=== PATIENT | male | born 1950 | race Caucasian/White ===

== ENCOUNTER → 2019-05-27 13:36 | Outpatient (CLI) | payer MEDICARE | END | disposition home or self-care (01) | LOC: D.CT 13:36 | PROVIDERS: ATTEND Family Medicine | DX: I70.213 Atherosclerosis of native arteries of extremities with intermittent claudication, bilateral legs (principal) ==

== ENCOUNTER → 2019-06-20 12:45 | Outpatient (CLI) | payer MEDICARE | END | disposition home or self-care (01) | LOC: D.US 12:45 | PROVIDERS: ATTEND Thoracic Surgery (Cardiothoracic Vascular Surgery) | DX: I65.23 Occlusion and stenosis of bilateral carotid arteries (principal) ==

== ENCOUNTER → 2019-06-23 07:56 | Outpatient (CLI) | payer MEDICARE | END | disposition home or self-care (01) | LOC: D.CT 07:56 | PROVIDERS: ATTEND Thoracic Surgery (Cardiothoracic Vascular Surgery) | DX: I65.23 Occlusion and stenosis of bilateral carotid arteries (principal); I70.8 Atherosclerosis of other arteries; R01.1 Cardiac murmur, unspecified ==

== ENCOUNTER → 2019-06-28 11:06 | Outpatient (CLI) | payer MEDICARE | END | disposition home or self-care (01) | LOC: D.HCCARDIO 11:06 | PROVIDERS: ATTEND Internal Medicine Interventional Cardiology | DX: I25.10 Atherosclerotic heart disease of native coronary artery without angina pectoris (principal) ==

== ENCOUNTER 2019-07-05 05:06 | Inpatient (IN) | payer MEDICARE ==
[2019-07-04 13:19] LABS: BASOPHILS 0.6 % (0-2); EOSINOPHILS 4.1 % (0-7); HEMOGLOBIN 12.6 g/dL (13.5-17.5); IMMATURE GRANULOCYTES 0.2 % (0-5); LYMPHOCYTES 26.7 % (15-50); MCH 33.7 pg (26.0-34.0); MCHC 33.2 g/dL (31.0-37.0); MCV 101.6 fL (80.0-100.0); MEAN PLATELET VOLUME 9.1 fL (7.4-10.4); MONOCYTES 8.2 % (2-11); NEUTROPHILS 60.2 % (40-80); PLATELET COUNT 312 10x3/uL (130-400); RBC 3.74 10x6/uL (4.20-6.10); WBC 10.1 10x3/uL (4.8-10.8)
[2019-07-04 13:20] LABS: BILIRUBIN NEGATIVE (NEGATIVE); GLUCOSE NEGATIVE (NEGATIVE); KETONE NEGATIVE (NEGATIVE); NITRITE NEGATIVE (NEGATIVE); SPECIFIC GRAVITY 1.005 (1.005-1.020); UROBILINOGEN NORMAL (NORMAL)
[2019-07-04 13:28] LABS: APTT 28.7 SECONDS (22.8-39.4); INR 0.94 (0.85-1.17); PROTIME 12.6 SECONDS (11.6-15.0)
[2019-07-04 13:34] LABS: ALBUMIN 4.1 g/dL (3.4-5.0); ALKALINE PHOSPHATASE 68 U/L (30-120); ALT (SGPT) 24 U/L (10-68); BILIRUBIN - TOTAL 0.32 mg/dL (0.2-1.3); CALC OSMOLALITY 267 mosm/kg (275-300); CALCIUM 9.3 mg/dL (8.5-10.1); CARBON DIOXIDE 27.5 mmol/L (21.0-32.0); CHLORIDE - SERUM 100 mmol/L (98-107); CREATININE - SERUM 0.8 mg/dL (0.6-1.3); GLUCOSE 99 mg/dL (74-106); POTASSIUM - SERUM 4.9 mmol/L (3.5-5.1); PROTEIN - SERUM 6.9 g/dL (6.4-8.2); SODIUM 133 mmol/L (136-145); UREA NITROGEN 17 mg/dL (7-18); eGFR NON AFRICAN AMERICAN > 90 mL/min (90-120)
--- NOTE | 2019-07-04 13:46 | NUR ---
8718 [address]POKE [address]STA IN DR REED'S OFFICE. SHE VERIFIED THEY HAVE ALREADY SEEN THE PATIENT'S NUCLEAR STRESS TEST FROM 06/28/[address] REED HAS TALKED TO DR CARRANZA ABOUT THE RESULTS. PT'S BLOOD PRESSURE'S FROM TODAY GIVEN AND MODESTA STATES THAT THE 50 POINT SPREAD IS NOT A NEW DEVELOPMENT. RBP 121/41 LBP 66/39
[~2019-07-05] VITALS: Ht 165.1 cm; Wt 66.1 kg
[2019-07-05] VITALS (33 sets, daily range): BP systolic 94–142; BP diastolic 30–55; BMI 22.8; BMI 22.4
--- NOTE | ~2019-07-05 | TEE ---
PATIENT:ALON ARELLANO MEDICAL RECORD: [id number] LOCATION:[facility] AGE OF PATIENT: 69 ADMISSION DATE: 07/05/19 SEX: M REFERRING PHYSICIAN: INTERPRETING PHYSICIAN: FRACISCO JERRY MD TRANSESOPHAGEAL ECHOCARDIOGRAM Date: 07/05/19 NIDHI CHARGE Y INDICATIONS: - AORTA BIFFEMORAL BYPASS PREMEDICATIONS: PATIENT'S RESPONSE PROCEDURE DOPPLER MEASUREMENTS: LVIT LA PA RA LVOT 1.8 RVOT Asc. Ao AV Gradient Peak 25.3 AV Mean 15.0 AV Area 0.7 MV Gradient Peak MV Mean MV Area INTERPRETATION: LVd: 5.0 cm LVs: 3.8 cm LA: 3.7 cm AV VMAX: 252 Doppler: 2-D: COLOR FLOW DOPPLER NORMAL SALINE STUDY: MISCELLANOUS: DIAGNOSIS: PLAN: Metabolic Specialist:Parrish Mary Public Relations Writer: Alvin MONCADA COMMENTS: DATE OF SERVICE: 07/06/2019 PROCEDURE: Transesophageal echo evaluation of valvular structures during aortic valve replacement surgery. OPERATIVE FINDINGS: 1. Left ventricular chamber size is within normal limits. Left ventricular systolic function is normal at 55% to 60%. TRANSESOPHAGEAL ECHOCARDIOGRAM REPORT [id number] ALON ARELLANO 2. Left atrium, right atrium, and right ventricular chamber sizes are within normal limits. 3. Valvular structures: Aortic valve demonstrates moderate calcific aortic stenosis, valve area calculates to 0.7 cm square and a gradient of 25 mm across the valve. The remaining valvular structures have normal structure and motion. 4. Doppler interrogation reveals no other valvular insufficiency or stenosis. 5. No evidence of pericardial effusion or left ventricular thrombus. TRANSINT:[id number] Voice Confirmation ID: [id number] DOCUMENT ID: [id number] FRACISCO JERRY MD CC: [id number] DICTATION DATE: 07/06/19 1155 ELEMENTARY SCHOOL COUNSELOR: 07/06/19 2142 ADM IN [place] [id number] [place] [address]
[~2019-07-05 05:06] MED LIST: ACCUPRIL40 MG PO; BAYER CHEWABLE81 MG; CYMBALTA30 MG; HYDROCODON-ACE1 EA10; LIPITOR80 MG; NEURONTIN 300300 MG PO; NORVASC10 MG PO; TOPROL XL25 MG; ZOFRAN4 MG PO
[2019-07-05 12:39] LABS: HEMOGLOBIN 10.1 g/dL (13.5-17.5); MCH 33.2 pg (26.0-34.0); MCHC 32.6 g/dL (31.0-37.0); MEAN PLATELET VOLUME 9.1 fL (7.4-10.4); RBC 3.04 10x6/uL (4.20-6.10); RDW 12.9 % (11.5-14.5)
[2019-07-05 12:46] LABS: CALC OSMOLALITY 279 mosm/kg (275-300); CALCIUM 7.4 mg/dL (8.5-10.1); CARBON DIOXIDE 23.5 mmol/L (21.0-32.0); CHLORIDE - SERUM 106 mmol/L (98-107); CREATININE - SERUM 0.8 mg/dL (0.6-1.3); GLUCOSE 104 mg/dL (74-106); POTASSIUM - SERUM 4.5 mmol/L (3.5-5.1); SODIUM 141 mmol/L (136-145); eGFR NON AFRICAN AMERICAN > 90 mL/min (90-120)
[2019-07-05 12:47] LABS: UREA NITROGEN 11 mg/dL (7-18)
[2019-07-05 12:52] LABS: ALKALINE PHOSPHATASE 45 U/L (30-120); ALT (SGPT) 20 U/L (10-68); BILIRUBIN - TOTAL 0.61 mg/dL (0.2-1.3); PROTEIN - SERUM 5.3 g/dL (6.4-8.2)
[2019-07-05 12:53] LABS: ALBUMIN 2.8 g/dL (3.4-5.0)
--- NOTE | 2019-07-05 19:00 | NUR ---
REPORT RECEVIED FROM THE OFF GOING RN. SEE ASSESSMENT IN THE PTS FLOW SHEET. PT VSS. PT NOTED TO HAVE A R IJ CVL. SEE FLUIDS IN THE PTS FLOW SHEET. MID ABD DRESSING AND BILATERAL GROIN DRESSING C/D/I. FC NOTED WITH CLEAR, YELLOW URINE. BILATERAL DP AND PT PULSES DOPPLERABLE. NGT NOTED TO LIS. HYPOACTIVE BS X4. EPIURAL NOTED. DRESSING C/D/I. PT DENIES PAIN AT THIS TIME. SEE EPIDURAL FLOW SHEET. CALL LIGHT IN REACH. WILL CONT POC.
--- NOTE | 2019-07-05 19:30 | MORECARE ---
CASE MANAGEMENT DISCHARGE SUMMARY PATIENT: ALON ARELLANO UNIT: [id number] ADM DATE: 07/05/19 AGE: 69 : 48 SEX: M [facility] AUTHOR: FILIPE RUCKER PHYSICIAN: REFERRING PHYSICIAN: EMILY REED MD DATE OF SERVICE: 07/05/19 Discharge Plan Patient Name: ALON ARELLANO [facility] : 1950 Planned Disposition: Home Anticipated Discharge Date: Discharge Date: Expected LOS: Initial Reviewer: [email or web address] Initial Review Date: 07/05/2019 Generated: 07/05/19 8:30 pm Patient Name: ALON ARELLANO Page [phone] at 1930 All edits/amendments must be made on the electronic document DICTATION DATE: 07/05/191929 COORDINATOR MINING PRODUCTS: BOBBY 07/05/191929 RPT#: [id number] DC DATE: STATUS: ADM IN [facility] [address] [place] [address] END OF REPORT
--- NOTE | 2019-07-05 19:38 | MORECARE ---
CASE MANAGEMENT DISCHARGE SUMMARY PATIENT: ALON SANCHES UNIT: [id number] ADM DATE: 07/05/19 AGE: 69 : 48 SEX: M ROOM/BED: D[facility] AUTHOR: ALKA,DOC PHYSICIAN: REFERRING PHYSICIAN: EMILY REED MD DATE OF SERVICE: 07/05/19 Discharge Plan Patient Name: ALON SANCHES Facility: [facility]:[place] : 1950 Planned Disposition: Home Anticipated Discharge Date: Discharge Date: Expected LOS: Initial Reviewer: [email or web address] Initial Review Date: 07/05/2019 Generated: 07/05/19 8:37 pm Comments DCP- Discharge Planning Updated by [email or web address]: Loretta Pryor on 07/05/19 6:[address] Patient Name: ALON SANCHES Admission Status: Urgent Accout number: [id number] Admission Date: 07-05-2019 : 1950 Admission Diagnosis: Attending: EMILY REED Current LOS: 1 Anticipated DC Date: Planned Disposition: Home Primary Insurance: MEDICARE A & B Discharge Planning Comments: CM met with patient to complete initial dc planning assessment. CM educated patient on the CM role and verbal consent given by patient to complete assessment. CM verified patient's address, phone number, and emergency contact phone numbers. Patient lives at home independently with his grand-daughter. At discharge patient plans to return home CM discussed availability of home health, rehab services, and medical equipment. Patient denies any discharge needs at this time. CM will continue to follow and will assist as needed with dc plans/needs. Applied Marine Physics Professor: Loretta Pryor DCPIA - Discharge Planning Initial Assessment Updated by [email or web address]: Loretta Pryor on 07/05/19 7:31 pm * Is the patient Alert and Oriented? Yes * How many steps to enter\exit or inside your home? 4-5 * PCP [place] * [facility] * Preadmission Environment Home with Family * ADLs Independent * Other Equipment walker, cane * List name and contact numbers for known caregivers / representatives who currently or will assist patient after discharge: Yazan Valiente -[phone] Jim Sanches - [phone] * Verbal permission to speak to the caregivers and representatives has been obtained from the patient. Yes * Community resources currently utilized None * Additional services required to return to the preadmission environment? No * Can the patient safely return to the preadmission environment? Yes * Has this patient been hospitalized within the prior 30 days at any hospital? No Last DP export: 07/05/19 6:30 pm Patient Name: ALON SANCHES Page [phone] at 1938 All edits/amendments must be made on the electronic document DICTATION DATE: 07/05/191936 FORENSIC MATERIALS ENGINEER: BOBBY 07/05/191936 RPT#: [id number] DC DATE: STATUS: ADM IN [facility] [address] [place] [address] END OF REPORT
--- NOTE | 2019-07-05 20:24 | NUR ---
DR DIOR PAGED REGARDING THE EPIDURAL. EPIDURAL WILL BE OUT IN ABOUT 8 HOURS. I CALLED HIM AND HE STATED THAT HE WILL COME BY LATER AND CHANGE OUT THE BAG.
--- NOTE | 2019-07-05 21:28 | NUR ---
DR DIOR IN THE UNIT. EPIDURAL BAG CHANGED.
--- NOTE | 2019-07-05 21:30 | NUR ---
DR DIOR STATED THAT HE CHANGED THE EPIDURAL RATE TO 6ML/H. BOLUS DOSE UNCHANGED.
--- NOTE | 2019-07-05 23:00 | NUR ---
REASSESSMENT COMPLETED. SEE FLOW SHEET. PULSES REMAIN DOPPLERABLE. INCISION SITES C/D/I. VSS. WILL COTN POC.
[2019-07-06] VITALS (24 sets, daily range): BP systolic 100–147; BP diastolic 23–77
--- NOTE | 2019-07-06 00:45 | NUR ---
RAMIRO TITRATED OFF PER BP.
--- NOTE | 2019-07-06 03:57 | NUR ---
FULL CHD BATH GIVEN TO THE PT. PT STATED THAT HE FELT LIKE HE MIGHT NEED TO HAVE A BM. PT ASSISTED OOB AND ONTO THE BCS. PT TRANSFERED WELL AND DENIED DIZZINESS. PT EXPLELLED GAS BUT DID NOT HAVE A BM. PT ASSISTED TO THE BEDSIDE CHAIR. VSS. WILL CONT POC.
[2019-07-06 05:46] LABS: HEMATOCRIT 29.6 % (42.0-54.0); HEMOGLOBIN 9.7 g/dL (13.5-17.5); MCH 33.4 pg (26.0-34.0); MCHC 32.8 g/dL (31.0-37.0); MCV 102.1 fL (80.0-100.0); MEAN PLATELET VOLUME 9.2 fL (7.4-10.4); RBC 2.9 10x6/uL (4.20-6.10); RDW 13.2 % (11.5-14.5); WBC 11.1 10x3/uL (4.8-10.8)
--- NOTE | 2019-07-06 06:17 | NUR ---
PT RESTING WITH HIS EYES CLSOED. NO S/SX OF DISTRESS/DISCOMFORT NOTED. CALL LIGHT IN REACH. WILL CONT POC.
[2019-07-06 06:20] LABS: ALBUMIN 2.6 g/dL (3.4-5.0); ALKALINE PHOSPHATASE 44 U/L (30-120); ALT (SGPT) 21 U/L (10-68); BILIRUBIN - TOTAL 0.42 mg/dL (0.2-1.3); CALC OSMOLALITY 277 mosm/kg (275-300); CALCIUM 7.8 mg/dL (8.5-10.1); CARBON DIOXIDE 23.7 mmol/L (21.0-32.0); CHLORIDE - SERUM 105 mmol/L (98-107); GLUCOSE 116 mg/dL (74-106); MAGNESIUM - SERUM 2.4 mg/dL (1.8-2.4); PHOSPHOROUS 3.7 mg/dL (2.5-4.9); POTASSIUM - SERUM 4.1 mmol/L (3.5-5.1); PROTEIN - SERUM 5.2 g/dL (6.4-8.2); SODIUM 139 mmol/L (136-145); UREA NITROGEN 11 mg/dL (7-18); eGFR NON AFRICAN AMERICAN 78 mL/min (90-120)
--- NOTE | 2019-07-06 10:55 | NUR ---
0700 PT RECIEVED UP IN CHAIR ALERT AND ORIENTED VSS DENIES ALL NEEDS, EPIDURAL SITE INTACT, NGT LIS, MIDLINE ABD AND BILAT GROIN INCISION DRESSINGS CDI, PULSES PALPABLE,DENIES NEED 0900 REPOSITIONED IN CHAIR 1045 CALLED PT TO ASSIST PT BACK TO BED PER DR REED
--- NOTE | 2019-07-06 11:30 | NUR ---
ASSISTED BACK TO BED WITH PT
--- NOTE | 2019-07-06 13:21 | NUR ---
PT HAS A CHRONIC NONHEALING ULCER MEASURING 1CM X 1CM ON HIS RIGHT LATERAL HEEL. THERE IS NO ODOR OR DRAINAGE. RECOMMENDED PAINTING WITH BETADINE AND COVERING FOR PROTECTION. WOUND CARE WILL MONITOR.
--- NOTE | 2019-07-06 13:54 | OP ---
PATIENT NAME: ALON ARELLANO MEDICAL RECORD: [id number] :[birth year] LOCATION:[facility] ADMISSION DATE:07/05/19 SURGEON: KING REED MD DATE OF OPERATION: 07/05/2019 SURGEON: King Reed MD PROCEDURE PERFORMED: Aortobifemoral bypass. 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 ANESTHESIA: General endotracheal anesthesia. ESTIMATED BLOOD LOSS: 100 cc, not enough for Cell Saver retransfusion. COMPLICATIONS: None. SPECIMENS: None. CONDITION: Stable. DISPOSITION: ICU. OPERATIVE FINDINGS: 1. Severe distal common femoral disease bilaterally as expected with a left distal anastomosis onto the proximal profunda; and on the right, on the distal common femoral, extending down onto the profunda femoral. 2. End-to-end aortic anastomosis with oversew of the aorta proximal to the inferior mesenteric and good Doppler signal in the inferior mesenteric artery after amish of flow on the left. INDICATION: Nonhealing right leg ulcer with right iliac and superficial femoral occlusion. PROCEDURE IN DETAIL: The patient was brought to the operating suite, general anesthesia was obtained, the patient was prepped and draped. Vertical incisions over both groins were made. The common femoral, profunda femoral, and superficial femoral on the branch were dissected out. The abdominal incision was made. Peritoneum was opened. Inspection revealed no masses. NG was placed in the appropriate position. The transverse mesocolon was lifted and the small intestine was packed off to the right. The retroperitoneum was incised and the infrarenal abdominal aorta was encircled. 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 Heparin was given after a tunnel was made between the retroperitoneum and both groins, and after the heparin had circulated inflow clamp was placed. The aorta was transected and back flow was good in the aorta, it was oversewn proximal to the inferior mesenteric to maintain flow, end-to-end anastomosis to 14 x 7 bifurcated Hemashield graft was performed. The limbs were then tunneled to both groins; on the left anastomosis, profunda femoral; then on the right to the distal common femoral, extending down the profunda femoral. Flow restored one leg at a time after, the graft was de-aired. Good flow was noted. Protamine was given. Thorough irrigation was undertaken. The abdomen was closed with PDS on the fascia, subcutaneous and skin clips in both groins, two layers of Vicryl and skin clips after antibiotic irrigation, the retroperitoneum on the abdomen was OPERATIVE REPORT [id number] ALON ARELLANO also closed. The patient was stable to the ICU. TRANSINT:[id number] Voice Confirmation ID: [id number] DOCUMENT ID: [id number] KING REED MD at 1354 CC: RITIKA TSAI [id number] DICTATION DATE: 07/05/19 1247 DIRECTOR OF EMPLOYER SERVICES: 07/05/19 1600 ADM IN [place] [address] [place] [address]
--- NOTE | 2019-07-06 15:13 | NUR ---
CVL DRESSING CHANGED
--- NOTE | 2019-07-06 15:58 | NUR ---
CONFIRMED WITH DR KAITLIN ROSAS TO RUN ZINACEF OVER 22 HOURS NOT 30 MINUTES. PHARMACY NOTIFIED
--- NOTE | 2019-07-06 16:53 | NUR ---
SPOKE WITH AGATA IN PHARMACY STIVEN LEY
--- NOTE | 2019-07-06 17:40 | NUR ---
PT REPOSITIONS SELF THROUGHOUT DAY, DENIES ALL NEEDS, VSS, FAMILY CALLED THROUGHOUT DAY AND UPDATES PROVIDED, WILL CONTINUE TO MONITOR
--- NOTE | 2019-07-06 18:20 | NUR ---
CALLED TO PTS ROOM, HE STATED HE WANTED SIDE RAIL LOWERED AND TO DANGLE RLE LOWER THAN HIS BODY WHILE HE LAID DUE TO PAIN, PAIN DESCRIBED REVASCULARIZATION PAIN, ATTEMPTED TO DISCUSS WITH PT WHO STATED HE WANTED TO BE LEFT SITTING AT SIDE OF BED ALONE, EXPLAINED THAT DUE TO EPIDURAL PT IS NOT SAFE TO SIT AT SIDE OF BED, PT STATED HE DIDNT BELIEVE THAT THIS IS A NORMAL PAIN AND HE WANTED TO LEAVE, CALLED DR REED WHO AGREED THAT PT IS HAVING REVASCULARIZATION PAIN AND THAT HE CANNOT BE ALLOWING LEGS TO DANGLE LOWER THAN REST OF BODY. MESSAGE RELAYED TO PT, OFFERED TO LAY RLE ON FOAM EGG CRATE AND REFUSED. PT FINALLY AGREED TO BEING TURNED WITH PILLOW.
--- NOTE | 2019-07-06 19:00 | NUR ---
SHIFT ASSESSMENT COMPLETED. PT CARE ASSUMED. MONITORS ON AND WORKING, VITALS STABLE, PT AWAKE AND ALERT, RIGHT RADIAL ART LINE NOTED, WRIST PROTECTOR ON, GOOD WAVE FORM, DONG CATH STAT LOCKED IN PLACE, NGT TO SUCTION. PT AWAKE AND ALERT, CALL LIGHT WITHIN REACH, WILL CONTINUE TO OBSERVE.
[2019-07-07] VITALS (25 sets, daily range): BP systolic 103–161; BP diastolic 41–67
[2019-07-07 07:11] LABS: ALBUMIN 2.5 g/dL (3.4-5.0); ALKALINE PHOSPHATASE 50 U/L (30-120); BILIRUBIN - TOTAL 0.33 mg/dL (0.2-1.3); CALCIUM 8.2 mg/dL (8.5-10.1); CARBON DIOXIDE 29.2 mmol/L (21.0-32.0); CHLORIDE - SERUM 106 mmol/L (98-107); MAGNESIUM - SERUM 2.3 mg/dL (1.8-2.4); POTASSIUM - SERUM 3.6 mmol/L (3.5-5.1); PROTEIN - SERUM 5.7 g/dL (6.4-8.2); SODIUM 141 mmol/L (136-145)
[2019-07-07 07:38] LABS: HEMATOCRIT 30.9 % (42.0-54.0); MCH 32.9 pg (26.0-34.0); MCHC 32.4 g/dL (31.0-37.0); MCV 101.6 fL (80.0-100.0); MEAN PLATELET VOLUME 9.8 fL (7.4-10.4); RBC 3.04 10x6/uL (4.20-6.10); RDW 13.4 % (11.5-14.5)
[2019-07-07 07:41] LABS: ALT (SGPT) 28 U/L (10-68); CALC OSMOLALITY 282 mosm/kg (275-300); CREATININE - SERUM 0.7 mg/dL (0.6-1.3); GLUCOSE 169 mg/dL (74-106); PHOSPHOROUS 2.4 mg/dL (2.5-4.9); UREA NITROGEN 8 mg/dL (7-18); WBC 15.1 10x3/uL (4.8-10.8); eGFR NON AFRICAN AMERICAN > 90 mL/min (90-120)
--- NOTE | 2019-07-07 08:35 | NUR ---
0700 PT RECIEVED ALERT AN DORIENTED VSS DENIES ALL NEEDS, ANESTHESIA IN ROOM CHANGING EPIDURAL BAG, SEE SHIFT ASSESSMENT, USING IS WITH ENCOURAGEMENT 0800 PT ABLE TO REPOSITION SELF, PULLING 750 ON IS
--- NOTE | 2019-07-07 09:05 | NUR ---
PT CONTINUALLY USING R ARM AND MOVING WRIST AFTER BEING EXPLAINED THAT HE SHOULD USE OTHER ARM DUE TO A LINE, A LINE WAVEFORM NOW FLAT, DR REED NOTIFIED WITH ORDERS TO DC
--- NOTE | 2019-07-07 09:17 | NUR ---
A LINE DCD PER PROTOCOL TIP INTACT
--- NOTE | 2019-07-07 10:33 | NUR ---
PT ASSISTED UP TO CHAIR
--- NOTE | 2019-07-07 17:48 | NUR ---
1400 ASSISTED TO BED BY THERAPY PT ABLE TO REPOSITION SELF IN BED, DENIES ALL NEEDS, PAIN MANAGED WITH EPIDURAL AND EXTERMINATOR HELPER WITHIN REACH, USES IS INDEPENDENTLY, WILL COTNINUE TO MONITOR
--- NOTE | 2019-07-07 19:00 | NUR ---
Report received from off going nurse. Pt is laying in bed watching tv at this time. Initial assessment completed, see flowsheet for details. Pt denies needs at this time. No s/s of distress. Will continue to monitor.
--- NOTE | 2019-07-07 21:00 | NUR ---
Pt is laying in bed watching tv at this time. No needs voiced at this time. No s/s of distress noted. Will continue to monitor.
--- NOTE | 2019-07-07 23:00 | NUR ---
Reassessment completed, see flowsheet for details. Pt is laying in bed watching tv. No needs voiced at this time. No s/s of distress. Will continue to monitor.
[2019-07-08] VITALS (25 sets, daily range): BP systolic 100–148; BP diastolic 43–78; Ht 165.1 cm; Wt 66.1 kg
--- NOTE | 2019-07-08 01:00 | NUR ---
Pt is laying in bed with eyes closed. No needs voiced at this time. No s/s of distress. Will continue to monitor.
--- NOTE | 2019-07-08 03:00 | NUR ---
Reassessment completed, see flowsheet for details. Pt is laying in bed with eyes closed at this time. No needs voiced. No s/s of distress. Will continue to monitor.
--- NOTE | 2019-07-08 05:00 | NUR ---
Pt is laying in bed with eyes closed at this time. No needs voiced at this time. No s/s of distress noted. Will continue to monitor.
[2019-07-08 05:42] LABS: HEMATOCRIT 26.6 % (42.0-54.0); HEMOGLOBIN 8.5 g/dL (13.5-17.5); MCH 33.2 pg (26.0-34.0); MEAN PLATELET VOLUME 9.3 fL (7.4-10.4); RBC 2.56 10x6/uL (4.20-6.10); RDW 13.5 % (11.5-14.5); WBC 11.6 10x3/uL (4.8-10.8)
[2019-07-08 05:44] LABS: MCV 103.9 fL (80.0-100.0)
[2019-07-08 06:08] LABS: ALKALINE PHOSPHATASE 41 U/L (30-120); ALT (SGPT) 25 U/L (10-68); BILIRUBIN - TOTAL 0.32 mg/dL (0.2-1.3); CALCIUM 7.7 mg/dL (8.5-10.1); CARBON DIOXIDE 29.2 mmol/L (21.0-32.0); CHLORIDE - SERUM 109 mmol/L (98-107); CREATININE - SERUM 0.7 mg/dL (0.6-1.3); MAGNESIUM - SERUM 2.2 mg/dL (1.8-2.4); POTASSIUM - SERUM 3.8 mmol/L (3.5-5.1); PROTEIN - SERUM 4.8 g/dL (6.4-8.2); SODIUM 144 mmol/L (136-145); UREA NITROGEN 7 mg/dL (7-18); eGFR NON AFRICAN AMERICAN > 90 mL/min (90-120)
[2019-07-08 06:27] LABS: CALC OSMOLALITY 285 mosm/kg (275-300); GLUCOSE 118 mg/dL (74-106); PHOSPHOROUS 1.6 mg/dL (2.5-4.9)
--- NOTE | 2019-07-08 07:55 | NUR ---
MOUTH CARE AND REPOSITIONED. HIGHFLOW NC 7L PLACED BY RT. NGT PATIENT AND AUSCULTATED FOR POSITIONING. NGT IS IN PLACE.
--- NOTE | 2019-07-08 10:29 | NUR ---
PT OOB TO CHAIR PER PT. DR HAIR HERE AND DR REED HERE AND DR HOANG WELL ON ROUNDS. MS PULLING 1500 ON I.S. GOOD EFFORT. ENCOURAGED TO COUGH AND DEEP BREATH. PERCUSSION TO LLL ORDERED BY DR HAIR. DISCUSSED WITH RT.
--- NOTE | 2019-07-08 13:28 | NUR ---
ASSISTED BACK TO BED WITH PT. PT RICKIE WELL.
--- NOTE | 2019-07-08 19:20 | NUR ---
REPORT REC'D AND CARE ASSUMED, REC'D PT AWAKE, ALERT, ORIENTED X 4, O2 @ 3.5 LITERS VIA HF NC, RIGHT NARE NGT TAPED SYMONE, PLACEMENT VERIFIED VIA SM AIR BOLUS AUSCULTATED OVER EPIGASTRIM, BS HYPOACTIVE, MIDLINE ABD DRSG CDI, RIJ CVL DRSG CDI WITH D51/2NS WITH 20KCL @ 75CC/HR, BILAT GROIN DRSGS CDI, EPIDURAL TAPED SECURELY TO BACK INFUSING @ 8CC/HR WITH 4CC Q15MIN BOLUS, PT RATING PAIN "A LITTLE AT THIS TIME", DONG PATENT DRAINING CONCENTRATED URINE, PPP, SR UP X 2, CALL LIGHT IN REACH, BED IN LOW POSIITION.
--- NOTE | 2019-07-08 21:15 | NUR ---
EVENING MEDS GIVEN ORDERED, PT RESTING IN BED EYES CLOSED, RESP EVEN AND UNLABORED, VSS, WILL MONITOR FOR CHANGES.
--- NOTE | 2019-07-08 22:35 | NUR ---
PT REPOSITIONED UP IN BED FOR COMFORT, COMPLAINS OF NAUSEA, GREEN BILE NOTED FROM NGT, 4MG ZOFRAN GIVEN SLOW IVP, PT'S HOB ELEVATED ON REQUEST, PT DENIES FURTHER NEEDS.
--- NOTE | 2019-07-08 23:00 | NUR ---
REASSESSEMENT COMPLETED, VSS, WILL CONTINUE TO MONITOR FOR CHANGES, PT DENIES NEEDS, SR UP X 2, CALL LIGHT IN REACH.
[2019-07-09] VITALS (23 sets, daily range): BP systolic 114–158; BP diastolic 43–91
--- NOTE | 2019-07-09 | NUR ---
PT COMPLAINS OF RIGHT HEEL BURNING, REQUESTING DRSG CHANGED, DRSG REMOVED, DIME SIZED WOUND WITH BLOODY EXUDATE NOTED, MEPILEX DRSG CHANGED, PT ASSISTED TO REPOSITION FOR COMFORT, EPIDURAL BEEPING LOW VOLUME 33ML LEFT, WILL NOTIFY ANESTHESIA.
--- NOTE | 2019-07-09 00:35 | NUR ---
AL KOBY AT BS REPLACING EPIDURAL BAG, PT DENIES NEEDS, VSS.
--- NOTE | 2019-07-09 02:00 | NUR ---
NO CHANGES IN STATUS AT THIS TIME.
--- NOTE | 2019-07-09 03:30 | NUR ---
REASSESSMENT COMPLETED, NO CHANGES FROM PREVIOUS ASSESSMENT, VSS, WILL CONT TO MONITOR
--- NOTE | 2019-07-09 05:30 | NUR ---
AM LAB DRAWN FROM CVL AND SENT TO LABS
[2019-07-09 05:42] LABS: HEMATOCRIT 25.2 % (42.0-54.0); MCH 33.2 pg (26.0-34.0); MCHC 31.7 g/dL (31.0-37.0); MCV 104.6 fL (80.0-100.0); MEAN PLATELET VOLUME 9.7 fL (7.4-10.4); RBC 2.41 10x6/uL (4.20-6.10); RDW 13.3 % (11.5-14.5); WBC 10.1 10x3/uL (4.8-10.8)
[2019-07-09 05:55] LABS: ALBUMIN 1.9 g/dL (3.4-5.0); ALKALINE PHOSPHATASE 43 U/L (30-120); ALT (SGPT) 22 U/L (10-68); BILIRUBIN - TOTAL 0.28 mg/dL (0.2-1.3); CALCIUM 7.4 mg/dL (8.5-10.1); CARBON DIOXIDE 28.3 mmol/L (21.0-32.0); CHLORIDE - SERUM 108 mmol/L (98-107); CREATININE - SERUM 0.7 mg/dL (0.6-1.3); PROTEIN - SERUM 4.7 g/dL (6.4-8.2); SODIUM 139 mmol/L (136-145); UREA NITROGEN 6 mg/dL (7-18); eGFR NON AFRICAN AMERICAN > 90 mL/min (90-120)
[2019-07-09 05:56] LABS: CALC OSMOLALITY 289 mosm/kg (275-300); GLUCOSE 345 mg/dL (74-106); PHOSPHOROUS 2.2 mg/dL (2.5-4.9); POTASSIUM - SERUM 5.3 mmol/L (3.5-5.1)
--- NOTE | 2019-07-09 09:25 | NUR ---
NGT TO LIW, OUTPUT INCREASED OVERNIGHT, HYPOACTIVE BS NOTED.
[2019-07-09 11:55] LABS: % SATURATION 17 % (15-55); IRON 24 ug/dl (35-150); TOTAL IRON BIND CAPACITY 134 ug/dl (260-445); UNSAT IRON BIND CAPACITY 110 ug/dl (150-375)
--- NOTE | 2019-07-09 12:18 | NUR ---
PT SITTING UP IN CHAIR. DR HAIR HERE ON ROUNDS.
--- NOTE | 2019-07-09 18:17 | NUR ---
BATH AND LINENS CHANGED.
--- NOTE | 2019-07-09 19:00 | NUR ---
ASSESSMENT COMPLETED. PT SITTING UP ON SIDE OF BED. EPIDURAL IN BUT NO MEDICINE. DRESSING CDI. O2 AT 3.5 L VIA NC. RIGHT IJ PATENT WITH IVF AND CIGARETTE CATCHER MORHPINE. C/O PAIN. INDEPENDENT WITH MOVING IN BED
--- NOTE | 2019-07-09 21:00 | NUR ---
PRN TORODOL GIVEN. CONT C/O PAIN BUT SAYS MORHPINE AND TORODOL HELP.
--- NOTE | 2019-07-09 23:00 | NUR ---
RE-ASSESSMENT COMPLETED. NO CHANGES SINCE LAST ASSESSMENT
--- NOTE | 2019-07-09 23:30 | NUR ---
DR. DIOR HERE. TOOK OUT EPIDURAL.
[2019-07-10] VITALS (23 sets, daily range): BP systolic 124–178; BP diastolic 46–84
--- NOTE | 2019-07-10 01:00 | NUR ---
NO SIGN OF BLEEDING OR SWELLING TO BACK POST EPIDURAL. GIVEN ANOTHER DOSE OF PRN TORODOL PER ORDERS. PATIENT STATES IT HELPS.
--- NOTE | 2019-07-10 03:00 | NUR ---
RE-ASSESSMENT COMPLETED. NO CHANGES SINCE LAST ASSESSMENT. STILL ABLE TO PALP CHRISSY PEDAL PULSES WITHOUT DIFFICULTY
--- NOTE | 2019-07-10 05:00 | NUR ---
ALERT/ORIENTED X4. DENIES ANY NEEDS. INDEPENDENT WITH REPOSITIONING
[2019-07-10 05:17] LABS: HEMATOCRIT 26.5 % (42.0-54.0); HEMOGLOBIN 8.6 g/dL (13.5-17.5); MCH 33.5 pg (26.0-34.0); MCHC 32.5 g/dL (31.0-37.0); MCV 103.1 fL (80.0-100.0); MEAN PLATELET VOLUME 9.9 fL (7.4-10.4); RBC 2.57 10x6/uL (4.20-6.10)
[2019-07-10 05:48] LABS: ALBUMIN 2.1 g/dL (3.4-5.0); ALKALINE PHOSPHATASE 44 U/L (30-120); ALT (SGPT) 26 U/L (10-68); BILIRUBIN - TOTAL 0.37 mg/dL (0.2-1.3); CALC OSMOLALITY 278 mosm/kg (275-300); CALCIUM 8.1 mg/dL (8.5-10.1); CARBON DIOXIDE 30.1 mmol/L (21.0-32.0); CHLORIDE - SERUM 105 mmol/L (98-107); CREATININE - SERUM 0.7 mg/dL (0.6-1.3); GLUCOSE 95 mg/dL (74-106); MAGNESIUM - SERUM 1.9 mg/dL (1.8-2.4); PHOSPHOROUS 3.2 mg/dL (2.5-4.9); POTASSIUM - SERUM 4.1 mmol/L (3.5-5.1); PROTEIN - SERUM 5.2 g/dL (6.4-8.2); SODIUM 141 mmol/L (136-145); UREA NITROGEN 8 mg/dL (7-18); eGFR NON AFRICAN AMERICAN > 90 mL/min (90-120)
--- NOTE | 2019-07-10 09:08 | NUR ---
PT OOB TO CHAIR. C/O INCISIONAL PAIN. IS ASKING FOR TORADOL PRN AND IS USING ORTHOTIC/PROSTHETIC PRACTITIONER MS.
--- NOTE | 2019-07-10 14:55 | NUR ---
1100- PT AMB 2 X AROUND ICU DEPT WITH PT. BACK TO CHAIR. CALL LIGHT IN REACH.
--- NOTE | 2019-07-10 19:15 | NUR ---
RECIVED BEDSIDE SHIFT REPORT AT BEDSIDE. PT IS AWAKE AND A&OX4 WATCHING TV. VOICES NO C/O AT THIS TIME OR PAIN. VSS. PERFOMRED FULL ASSESSMENT AND WILL DOC IN FLOWSHEET. NOTIED PT TO BE TAKING SIPS OF WATER PER ORDER. BED IS LOW,SIDE RAILSX2,CALL [facility] WTIN REACH. WILL CONTINUE TO MONITOR
--- NOTE | 2019-07-10 21:48 | NUR ---
PT IS RESTING IN BED. SWITCHED OUT MORPHINE SYRINGE AND SCANNED ON MAY. PT VOICES PAIN "7/10" NUMERIC SCALE. HE PUSHED HIS METER ENGINEER BUTTON AT THIS TIME. EMPTIED URINAL OF 280ML OF LIGHT YELLOW URINE AT THIS TIME. BED IS LOW,SIDE RIASLX2,CALL [facility] WITHIN REACH. WILL CONTINUE TO MONITOR
--- NOTE | 2019-07-10 22:20 | NUR ---
PT USED CALL LIGHT FROM ROOM. HE ASKED IF HE COULD HAVE "CAN I HAVE MY NEW PAIN MEDICINE?'. I ASK HIM IF HE MEANS HIS TORADOL, HE VOICES "YEA". WILL GET AND DOC ON MAY. NO OTHER NEEDS VOIED. HE STATES PAIN IS (7/10) ON NUMERIC SCALE. VSS. BED IS LOW,SIDE RAISLX2,CALL LIGHT WITHIN REACH.WILL CONTINUE TO MONITOR
--- NOTE | 2019-07-10 23:01 | NUR ---
JUST ADMINSITERED SCHEDULED MEDS. PT ASKED IF HE COULD SIT UP IN THE CHAIR FOR AWHILE. I VOICED YES. PT GOT HIMSELF TO THE SIDE OF BED AND STOOD UP WITH NO ASSISTANCE. I JUST STAYED BESIDE HIM TO MONITOR. HE SAFELY WALKED TO THE CHAIR AND SAT DOWN BY HIMSELF. I HELPED ADJUST ALL CORDS, AND LINES TO COMFORT. CHAIR LEGS ARE LOCKED, CALL LIGHT IS WITHIN REACH ALONG WITH FOUNTAIN PEN TURNER BUTTON. HE VOICED "ILL CALL YA WHEN IM READY TO GO BACK TO BED". NO OTHER NEEDS VOICED. VSS. WILL CONITNUE TOMONITOR
[2019-07-11] VITALS (11 sets, daily range): BP systolic 95–155; BP diastolic 49–86
--- NOTE | 2019-07-11 | NUR ---
PT USED CALL LIGHT AND VOICED "I WOULD LIKE TO GET BACK TO BED". PT SAFELY GOT HIMSELF BACK TO BED WHILE I MONITORED BESIDE HIM. I SITUATED ALL HIS LINES AND CARDS TO COMFORT. ELEVATED RIGHT LEG PER REQUEST. VSS. BED IS LOW,SIDE RAILSX2,CALL LIGHT WITHIN REACH. WILL CONTINUE TO MONITOR
--- NOTE | 2019-07-11 02:40 | NUR ---
PT USED CALL LIGHT AND ASKED IF HE COULD HAVE HIS "EXTRA PAIN MEDICINE". I ASKED IF HE MEANS THE TORADOL?. HE VOICED "YEA". VOICES PAIN "7/10" NUMERIC SCALE. ADMINISTERED AND CHARTED ON MAY TORADOL 15MG IV. EMPTIED 300ML OF LIGHT YELLOW URINE FROM URINAL AND PERFORMED RE-ASSESSMENT AT THIS TIME AND WILL DOC ON FLOW SHEET. VSS. PT REPOSITIONED FOR COMFORT AT THIS TIME. RIGHT LEG IS ELEVATED TO DECREASE SWELLING. BED IS LOW,SIDE RIALSX2,CALL LIGHT WITHIN REACH. WILL CONTINUE TO MONITOR
[2019-07-11 03:53] LABS: BASOPHILS 0.5 % (0-2); EOSINOPHILS 7.2 % (0-7); HEMOGLOBIN 8.4 g/dL (13.5-17.5); IMMATURE GRANULOCYTES 0.1 % (0-5); LYMPHOCYTES 15.9 % (15-50); MCH 32.9 pg (26.0-34.0); MCHC 32.3 g/dL (31.0-37.0); MEAN PLATELET VOLUME 9.5 fL (7.4-10.4); NEUTROPHILS 66.3 % (40-80); PLATELET COUNT 327 10x3/uL (130-400); RBC 2.55 10x6/uL (4.20-6.10); RDW 12.7 % (11.5-14.5); WBC 8.2 10x3/uL (4.8-10.8)
[2019-07-11 04:04] LABS: CALC OSMOLALITY 275 mosm/kg (275-300); CARBON DIOXIDE 29.2 mmol/L (21.0-32.0); CHLORIDE - SERUM 104 mmol/L (98-107); CREATININE - SERUM 0.6 mg/dL (0.6-1.3); GLUCOSE 97 mg/dL (74-106); POTASSIUM - SERUM 4.1 mmol/L (3.5-5.1); SODIUM 139 mmol/L (136-145); UREA NITROGEN 7 mg/dL (7-18); eGFR NON AFRICAN AMERICAN > 90 mL/min (90-120)
--- NOTE | 2019-07-11 04:27 | NUR ---
PT IS RESTING IN BED ON LEFT SIDE WITH EYES CLOSED. VSS. BED IS LOW,SIDE RAILSX2,CALL [facility] WITHIN REACH. WILL CONTINUE TO MONITOR
--- NOTE | 2019-07-11 06:00 | NUR ---
PT IS RESTING WITH EYES CLOSED. VSS. ADMINISTERING SCHEDULED MEDS AT THIS TIME. I ALSO NOTICED THAT HIS RIGHT IJ DRESSING HAD BEGIN TO DETACH. I CHANGED CENTRAL LINE DRESSING AT THIS TIME WHILE KEEPING STERIL TECHNIQUE. PT TOLERATED WELL WITH NO C/O. NO NEEDS OR WANTS VOICED BY THE PT OTHER THAN "IS IT TIME FOR MY OTHER PAIN MEDICINE YET?". I VOICED AT ABOUT 0630 HE CAN HAVE IT AGAIN. HE VOICED"OK". HE DID PUSH HIS MORPHINE BALANCE WHEEL SCREW HOLE DRILLER BUTTON AT THIS TIME. VSS. BED IS LOW,SIDE RIALSX2,CALL [facility] WITHIN REACH. WILL CONTINUE TO MONITRO
--- NOTE | 2019-07-11 07:10 | NUR ---
REPORT RECIEVED, SHIFT ASSESSMENT COMPLETE, PT IS ALERT AND ORIENTED, ON 2L NC WITH 97% O2 SAT. ALL PPP, VSS, CALL LIGHT IN REACH
--- NOTE | 2019-07-11 08:41 | NUR ---
Nutrition follow-up: POD 6 Diet: clear liquids and advance as tolerated Wt: 146# labs reviewed RDN following.
--- NOTE | 2019-07-11 10:23 | NUR ---
ARRIVE TO ROOM VIA WHEELCHAIR FROM ICU. AMBULATES TO CHAIR. GAIT STEADY. ALERT AND ORIENTED X4. RT IJ SL. SWAB CAPS ON. MIDLINE ABDOMINAL INCISION KAJAL CLEAN, DRY, INTACT. DENIES ANY NEEDS AT THIS TIME. CONTINUE PLAN OF CARE AND SAFETY PRECAUTIONS.
--- NOTE | 2019-07-11 19:15 | NUR ---
RECEIVED REPORT, WILL ASSUME CARE OF PT, PHARMACY BROUGHT IRON, WILL GIVE NON-SCHDULED, IT WAS DUE AROUND 1700, PT SITTING IN CHAIR, DENIES ANY NEEDS, CALL LIGHT IN REACH, WILL CONTINUE PLAN OF CARE
[2019-07-12] VITALS: BP 165/70
--- NOTE | 2019-07-12 03:47 | NUR ---
I have reviewed this patient and I concur with the Shift Assessment completed by the Licensed Practical Nurse today this shift.
[2019-07-12 04:00] VITALS: BP 141/66
[2019-07-12 05:48] LABS: BASOPHILS 0.5 % (0-2); EOSINOPHILS 5.6 % (0-7); HEMATOCRIT 27.1 % (42.0-54.0); HEMOGLOBIN 8.7 g/dL (13.5-17.5); IMMATURE GRANULOCYTES 0.2 % (0-5); MCH 32.7 pg (26.0-34.0); MCHC 32.1 g/dL (31.0-37.0); MCV 101.9 fL (80.0-100.0); MONOCYTES 12.4 % (2-11); NEUTROPHILS 68.3 % (40-80); PLATELET COUNT 365 10x3/uL (130-400); RBC 2.66 10x6/uL (4.20-6.10); RDW 12.6 % (11.5-14.5); WBC 9.2 10x3/uL (4.8-10.8)
[2019-07-12 06:09] LABS: CALC OSMOLALITY 277 mosm/kg (275-300); CALCIUM 8.2 mg/dL (8.5-10.1); CARBON DIOXIDE 30.2 mmol/L (21.0-32.0); CHLORIDE - SERUM 105 mmol/L (98-107); CREATININE - SERUM 0.7 mg/dL (0.6-1.3); GLUCOSE 87 mg/dL (74-106); MAGNESIUM - SERUM 1.9 mg/dL (1.8-2.4); POTASSIUM - SERUM 3.8 mmol/L (3.5-5.1); SODIUM 141 mmol/L (136-145); UREA NITROGEN 6 mg/dL (7-18); eGFR NON AFRICAN AMERICAN > 90 mL/min (90-120)
[2019-07-12 08:00] VITALS: BP 156/58
--- NOTE | 2019-07-12 08:00 | NUR ---
IJ CVL DCD ORDERED.
--- NOTE | 2019-07-12 09:59 | NUR ---
DRSG CHANGED TO RIGHT GROIN ORDERED. PIV STARTED TO RIGHT FA WITH 22 GAUGE CATH AND FLUSHED WITH NS. LINE IS PATENT.
--- NOTE | 2019-07-12 10:19 | NUR ---
STOOL SPECIMEN COLLECTED AND TAKEN TO LAB. WILL MONITOR.
--- NOTE | 2019-07-12 12:17 | NUR ---
Nutrition follow-up: POD 7 Diet just advanced to clear liquids 07/10 Labs reviewed Wt: 145# Recommend advancing diet to low sodium as tolerated today RDN following.
--- NOTE | 2019-07-12 13:21 | NUR ---
RIGHT HEEL REWRAPED AFTER US.
[2019-07-12 13:25] VITALS: BP 159/59
--- NOTE | 2019-07-12 14:33 | MORECARE ---
CASE MANAGEMENT DISCHARGE SUMMARY PATIENT: ALON ARELLANO UNIT: [id number] ADM DATE: 07/05/19 AGE: 69 : 48 SEX: M ROOM/BED: D.2117 AUTHOR: ALKA,DOC PHYSICIAN: REFERRING PHYSICIAN: EMILY REED MD DATE OF SERVICE: 07/12/19 Discharge Plan Patient Name: ALON ARELLANO Facility: [facility]:[place] : 1950 Planned Disposition: Home Anticipated Discharge Date: Discharge Date: Expected LOS: Initial Reviewer: [email or web address] Initial Review Date: 07/05/2019 Generated: 07/12/19 3:32 pm Comments DCP- Discharge Planning Updated by [email or web address]: Maria Isabel Pires on 07/12/19 1:[address] CM contacted Kathya with Rehab services for evaluation. DCP- Discharge Planning Updated by [email or web address]: Loretta Pryor on 07/05/19 6:[address] Patient Name: ALON ARELLANO Admission Status: Urgent Accout number: [id number] Admission Date: 07-05-2019 : 1950 Admission Diagnosis: Attending: EMILY REED Current LOS: 1 Anticipated DC Date: Planned Disposition: Home Primary Insurance: MEDICARE A & B Discharge Planning Comments: CM met with patient to complete initial dc planning assessment. CM educated patient on the CM role and verbal consent given by patient to complete assessment. CM verified patient's address, phone number, and emergency contact phone numbers. Patient lives at home independently with his grand-daughter. At discharge patient plans to return home CM discussed availability of home health, rehab services, and medical equipment. Patient denies any discharge needs at this time. CM will continue to follow and will assist as needed with dc plans/needs. Chain Testing Machine Operator: Loretta Pryor DCPIA - Discharge Planning Initial Assessment Updated by [email or web address]: Loretta Pryor on 07/05/19 7:31 pm * Is the patient Alert and Oriented? Yes * How many steps to enter\exit or inside your home? 4-5 * PCP [facility] * [facility] * Preadmission Environment Home with Family * ADLs Independent * Other Equipment walker, cane * List name and contact numbers for known caregivers / representatives who currently or will assist patient after discharge: Yazan Valiente -[phone] Jim Mckennaer- [phone] * Verbal permission to speak to the caregivers and representatives has been obtained from the patient. Yes * Community resources currently utilized None * Additional services required to return to the preadmission environment? No * Can the patient safely return to the preadmission environment? Yes * Has this patient been hospitalized within the prior 30 days at any hospital? No Last DP export: 07/05/19 6:38 pm Patient Name: ALON AERLLANO Page [id number] at 1433 All edits/amendments must be made on the electronic document DICTATION DATE: 07/12/191431 INK JET OPERATOR: BOBBY 07/12/191431 RPT#: [id number] DC DATE: STATUS: ADM IN [facility] [address] [place] [address] END OF REPORT
--- NOTE | 2019-07-12 14:44 | NUR ---
REHAB PRESCREENING Rehab referral received and chart reviewed. Physical Therapy has signed off on this patient as he is Independent with all mobility and was able to ambulate 500 feet with no assistive device. Mr. Sanches does not meet admission criteria for ARU as he is highly functional. Thank you for this referral! Afsaneh Greer, SURVEY MANAGER Rehab PD
[2019-07-12 21:12] VITALS: BP 123/49
[2019-07-12 23:58] VITALS: BP 136/53
[2019-07-13 05:17] VITALS: BP 141/49
[2019-07-13 05:57] LABS: BASOPHILS 0.4 % (0-2); EOSINOPHILS 5.8 % (0-7); HEMATOCRIT 27.5 % (42.0-54.0); HEMOGLOBIN 8.8 g/dL (13.5-17.5); IMMATURE GRANULOCYTES 0.3 % (0-5); LYMPHOCYTES 19.3 % (15-50); MCH 32.8 pg (26.0-34.0); MCV 102.6 fL (80.0-100.0); MEAN PLATELET VOLUME 9.8 fL (7.4-10.4); MONOCYTES 14.9 % (2-11); NEUTROPHILS 59.3 % (40-80); PLATELET COUNT 397 10x3/uL (130-400); RBC 2.68 10x6/uL (4.20-6.10); RDW 12.8 % (11.5-14.5)
[2019-07-13 06:42] LABS: CALC OSMOLALITY 273 mosm/kg (275-300); CALCIUM 8.1 mg/dL (8.5-10.1); CARBON DIOXIDE 32.9 mmol/L (21.0-32.0); CHLORIDE - SERUM 104 mmol/L (98-107); CREATININE - SERUM 0.6 mg/dL (0.6-1.3); GLUCOSE 87 mg/dL (74-106); MAGNESIUM - SERUM 1.8 mg/dL (1.8-2.4); POTASSIUM - SERUM 4.3 mmol/L (3.5-5.1); SODIUM 139 mmol/L (136-145); UREA NITROGEN 5 mg/dL (7-18); eGFR NON AFRICAN AMERICAN > 90 mL/min (90-120)
[2019-07-13 09:27] VITALS: BP 174/67
[2019-07-13] MEDS ORDERED: HEMOCYTE PLUS C1 CAP PO ×2 (10:51→12:05)
[2019-07-13] MEDS ORDERED: MUCINEX DM ER1 EAC1 PO ×2 (10:51→12:05)
[2019-07-13] MEDS ORDERED: PERCOCET 10-321 EAC1 PO ×2 (10:51→12:05)
[2019-07-13] MEDS ORDERED: COLACE100 MG PO ×2 (10:51→12:05)
[2019-07-13] MEDS ORDERED: FLUTICASONE PRO16 GM NASAL ×2 (10:51→12:05)
[2019-07-13] MEDS ORDERED: LISINOPRIL10 MG PO ×2 (10:51→12:05)
[2019-07-13] MEDS ORDERED: LOPRESSOR25 MG PO ×2 (10:51→12:05)
[2019-07-13] MEDS ORDERED: NORVASC5 MG PO ×2 (10:51→12:05)
--- NOTE | 2019-07-13 12:05 | NUR ---
I CALLED DEXTER BYERS AT DR REED OFFICE FOR WRITTEN SCRIPTS TO BE SIGNED. SHE SAID TO HANG ON TO THEM AND SHE WILL CALL ME BACK THEY SHOULD OF PRINTED TO PHARMACY.
--- NOTE | 2019-07-13 12:20 | NUR ---
DEXTER BYERS FROM DR REED OFFICE HERE AND I GAVE HER ALL THE WRITTEN NON SIGNED SCRIPTS
--- NOTE | 2019-07-13 12:26 | NUR ---
D/C PTS R.FA PIV WITH CATHETER TIP FULLY INTACT. ALL BELONGINGS COLLECTED AND BAGGED WITH PT. D/C TELEMETRY AND RETURNED TO [employer] [facility]. CHANGED PTS R.ARABELLA DIAZ AND KAJAL ARE CDI NO S/S OF DRAINAGE OR REDNESS NOTED. REDRESSED PER ORDER. DEXTER BYERS. AT BEDSIDE TO TALK WITH PT ABOUT DISCHARGE FROM CARDIOLOGY STAND POINT. DISCHARGE TEACHING PROVIDED AND PAPERS SIGNED. PT VERBALIZED UNDERSTANDING AND DENIES ANY QUESTIONS OR CONCERNS. PT WILL CALL FOR TRANSPORTATION AND BE ESCORTED OUT SHORTLY. NO FURTHER NEEDS.
--- NOTE | 2019-07-13 18:26 | MORECARE ---
CASE MANAGEMENT DISCHARGE SUMMARY PATIENT: ALON SANCHES UNIT: [id number] ADM DATE: 07/05/19 AGE: 69 : 48 SEX: M ROOM/BED: D.2117 AUTHOR: ALKA,DOC PHYSICIAN: REFERRING PHYSICIAN: EMILY REED MD DATE OF SERVICE: 07/13/19 Discharge Plan Patient Name: ALON SANCHES Facility: [facility]:[place] : 1950 Planned Disposition: Home Anticipated Discharge Date: 07/13/19 Discharge Date: 07/13/2019 Expected LOS: 8 Initial Reviewer: [email or web address] Initial Review Date: 07/05/2019 Generated: 07/13/19 7:25 pm Comments DCP- Discharge Planning Updated by [email or web address]: Maria Isabel Pires on 07/13/19 5:[address] CM met with patient regarding DC needs/plans. Patient lives independently at home with his g.daughter. PCP: Dr Keating. Pharmacy: [email or web address]. Emergency contact: Amarjit Valiente (dtr) [phone]. Uses no DME, Discussed HHS, Rehab, SNF with patient and he refuses all. States that he cleans heel ulcer, dresses it. Family member will drive him home. DCP- Discharge Planning Updated by [email or web address]: Maria Isabel Pires on 07/12/19 1:[address] CM contacted Kathya with Rehab services for evaluation. DCP- Discharge Planning Updated by [email or web address]: Loretta Pryor on 07/05/19 6:[address] Patient Name: ALON SANCHES Admission Status: Urgent Accout number: [id number] Admission Date: 07-05-2019 : 1950 Admission Diagnosis: Attending: EMILY REED Current LOS: 1 Anticipated DC Date: Planned Disposition: Home Primary Insurance: MEDICARE A & B Discharge Planning Comments: CM met with patient to complete initial dc planning assessment. CM educated patient on the CM role and verbal consent given by patient to complete assessment. CM verified patient's address, phone number, and emergency contact phone numbers. Patient lives at home independently with his grand-daughter. At discharge patient plans to return home CM discussed availability of home health, rehab services, and medical equipment. Patient denies any discharge needs at this time. CM will continue to follow and will assist as needed with dc plans/needs. Box Car Checker: Loretta Pryor DCPIA - Discharge Planning Initial Assessment Updated by [email or web address]: Loretta Pryor on 07/05/19 7:31 pm * Is the patient Alert and Oriented? Yes * How many steps to enter\exit or inside your home? 4-5 * PCP [facility] * [facility] * Preadmission Environment Home with Family * ADLs Independent * Other Equipment walker, cane * List name and contact numbers for known caregivers / representatives who currently or will assist patient after discharge: Yazansandra Valiente -[phone] Jim Sanches - [phone] * Verbal permission to speak to the caregivers and representatives has been obtained from the patient. Yes * Community resources currently utilized None * Additional services required to return to the preadmission environment? No * Can the patient safely return to the preadmission environment? Yes * Has this patient been hospitalized within the prior 30 days at any hospital? No Last DP export: 07/12/19 1:33 p Patient Name: ALON SANCHES Page [id number] at 1826 All edits/amendments must be made on the electronic document DICTATION DATE: 07/13/191824 GLASS SELECTOR: BOBBY 07/13/191824 RPT#: [id number] DC DATE:07/13/19 STATUS: DIS IN [facility] [address] [place] [address] END OF REPORT
== END 2019-07-13 13:20 | disposition home or self-care (01) | DRG 271 ==
LOC: D.SDCHOLD 05:06 → D.CVICU 05:06 → D.M2 05:06 → D.SDCHOLD 07:30 → D.CVICU 09:56 → D.ICU 07-08 16:45 → D.M2 07-11 10:17 → D.SDCHOLD 07-12 12:28 → D.M2 07-12 12:30
PROVIDERS: Family Medicine; Internal Medicine Nephrology; ADMIT Thoracic Surgery (Cardiothoracic Vascular Surgery); ATTEND Thoracic Surgery (Cardiothoracic Vascular Surgery)
PROC: 04100ZK Bypass Abdominal Aorta to Bilateral Femoral Arteries, Open Approach (ICD-10-PCS; principal; 2019-07-05 07:30)
DX: I70.203 Unspecified atherosclerosis of native arteries of extremities, bilateral legs (principal); L97.919 Non-pressure chronic ulcer of unspecified part of right lower leg with unspecified severity; J98.11 Atelectasis; D62 Acute posthemorrhagic anemia; K56.7 Ileus, unspecified; D53.9 Nutritional anemia, unspecified; K21.9 Gastro-esophageal reflux disease without esophagitis; I10 Essential (primary) hypertension; E78.5 Hyperlipidemia, unspecified; F41.8 Other specified anxiety disorders; J43.9 Emphysema, unspecified; I35.0 Nonrheumatic aortic (valve) stenosis

== ENCOUNTER → 2019-07-22 13:06 | Outpatient (CLI) | payer MEDICARE ==
[2019-07-08 10:20] VITALS: BMI 21.8
[~2019-07-22 13:06] MED LIST changes: +COLACE100 MG PO; +FLUTICASONE PRO16 GM NASAL; +HEMOCYTE PLUS C1 CAP PO; +LISINOPRIL10 MG PO; +LOPRESSOR25 MG PO; +MUCINEX DM ER1 EAC1 PO; +NORVASC5 MG PO; +PERCOCET 10-321 EAC1 PO
== END | disposition home or self-care (01) ==
LOC: D.US 13:06
PROVIDERS: ATTEND Thoracic Surgery (Cardiothoracic Vascular Surgery)
DX: R22.41 Localized swelling, mass and lump, right lower limb (principal)

== ENCOUNTER → 2019-08-15 12:34 | Outpatient (CLI) | payer MEDICARE ==
[2019-07-08 10:20] VITALS: BMI 21.8
== END | disposition home or self-care (01) ==
LOC: D.US 08-09 13:00
PROVIDERS: ATTEND Thoracic Surgery (Cardiothoracic Vascular Surgery)
DX: R22.41 Localized swelling, mass and lump, right lower limb (principal); R60.0 Localized edema; T81.30XA Disruption of wound, unspecified, initial encounter; M79.604 Pain in right leg

== ENCOUNTER → 2019-12-20 12:27 | Outpatient (CLI) | payer MEDICARE ==
[2019-07-08 10:20] VITALS: BMI 21.8
== END | disposition home or self-care (01) ==
LOC: D.US 10:00
PROVIDERS: ATTEND Thoracic Surgery (Cardiothoracic Vascular Surgery)
DX: I73.9 Peripheral vascular disease, unspecified (principal)